=== PATIENT | female | born 1995 | race Caucasian/White ===

== ENCOUNTER → 2018-02-12 14:22 | Outpatient (CLI) | payer OTHER, MEDICAID, SELFPAY ==
[2018-02-12 15:04] LABS: Alanine Aminotransferase 29 IU/L (9-52); Albumin 4.6 g/dL (3.5-5.0); Albumin Globulin Ratio 1.6 (1.0-2.8); Alkaline Phosphatase 53 U/L (38-126); Aspartate Aminotransferase 19 IU/L (14-36); Bilirubin Total 0.6 mg/dL (0.2-1.3); Blood Urea Nitrogen 16 mg/dL (7-17); Calcium 9.4 mg/dL (8.4-10.2); Carbon Dioxide 29 mmol/L (22-32); Chloride 101 mmol/L (98-107); Estimated Glomerular Filt Rate > 60.0 mL/min (>60); Globulin 2.9 g/dL (1.7-4.1); Glucose 85 mg/dL (70-100); HEMOLYSIS < 15 (0-50); Sodium 141 mmol/L (137-145); Total Protein 7.5 g/dL (6.3-8.2)
[2018-02-12 15:09] LABS: Add Manual Diff / Slide Review NO; Basophils Percent Auto 0.4 % (0-2); Eosinophils Percent Auto 1.2 % (2-4); Hematocrit 38.6 % (36-46); Hemoglobin 12.5 g/dL (12.0-16.0); Lymphocytes Percent Auto 33.8 % (25-40); Mean Corpuscular HGB Conc 32.5 % (30-36); Mean Corpuscular Hemoglobin 27.6 PG (26-34); Monocytes Percent Auto 5.3 % (3-14); Neutrophils Absolute Auto 6100 /uL (3000-5900); Neutrophils Percent Auto 59.3 % (50-75); Platelet Count 299 X10^3/uL (150-400); Red Blood Cell Count 4.54 X10^6/uL (4.0-5.2); Red Cell Distribution Width 15.8 % (11.6-14.8); White Blood Cell Count 10.3 X10^3/uL (4.5-11.0)
[2018-02-12 15:18] LABS: Free T3, Triiodothyronine Free 2.03 pg/mL (2.77-5.27); Free T4, Direct Thyroxine 0.33 ng/dL (0.78-2.19)
== END ==
PROVIDERS: Family Provider Nurse Practitioner Family; PCP Family Medicine; Visit Provider Family Medicine
DX: E03.9 Hypothyroidism, unspecified (principal)
CPT/HCPCS: 36415; 80053; 84439; 84443; 84481; 85025

== ENCOUNTER → 2018-05-14 09:59 | Outpatient (CLI) | payer SELFPAY | PROVIDERS: PCP Family Medicine; Visit Provider Internal Medicine | DX: E03.9 Hypothyroidism, unspecified (principal) | CPT/HCPCS: 36415; 84443 ==

== ENCOUNTER → 2018-10-17 12:28 | Outpatient (CLI) | payer OTHER, MEDICAID, SELFPAY ==
--- NOTE | 2018-10-17 | DI.RAD.S_ITS ---
PROCEDURE: XR LUMBAR SPINE 2-3V INDICATIONS: LEFT LEG SCIATICA AND LOW BACK PAIN TECHNIQUE: 3 views of the lumbar spine were acquired. COMPARISON: None. FINDINGS: [facility], X-ray, Lumbar spine, 3 views, 10/20/2016 Bones: 5 [id number] vertebrae are present. There is normal bony alignment. No vertebral body compression fractures. No suspicious bony lesions. Soft tissues: Overlying bowel gas pattern is normal. No suspicious soft tissue calcifications. Moderate amount of stool in colon. IMPRESSION: Normal lumbar spine radiograph. Dictated by: Kylah Alfredo M.D. on 10/17/2018 at 16:57 Approved by: Kylah Alfredo M.D. on 10/17/2018 at 16:58
--- NOTE | 2018-10-17 | DI.RAD.S_ITS ---
PROCEDURE: XR PELVIS 1-2V INDICATIONS: LEFT LEG SCIATICA AND BACK PAIN TECHNIQUE: 1 view(s) of the pelvis acquired. COMPARISON: None. FINDINGS: Bones: No fractures or dislocations. No suspicious bony lesions. Soft tissues: Visualized bowel gas pattern is normal. No suspicious soft tissue calcifications. IMPRESSION: Normal exam. Dictated by: Kylah Alfredo M.D. on 10/17/2018 at 16:59 Approved by: Kylah Alfredo M.D. on 10/17/2018 at 17:00
== END ==
PROVIDERS: PCP Family Medicine; Visit Provider Chiropractor
DX: M54.42 Lumbago with sciatica, left side (principal)
CPT/HCPCS: 72100; 72170

== ENCOUNTER → 2019-01-09 10:13 | Outpatient (CLI) | payer OTHER, MEDICAID, SELFPAY ==
[2019-01-09 10:42] LABS: RBC Urine None Seen (0-5/HPF); WBC Urine None Seen (0-5/HPF)
[2019-01-09 10:57] LABS: Appearance Urine UA CLEAR; Bilirubin Urine UA NEGATIVE (NEGATIVE); Color Urine UA YELLOW; Glucose Urine UA NEGATIVE (Negative); Ketones Urine UA NEGATIVE (NEGATIVE); Leukocyte Esterase Urine UA NEGATIVE (NEGATIVE); Nitrite Urine UA NEGATIVE (Negative); Occult Blood Urine UA NEGATIVE (Negative); Protein Urine UA NEGATIVE (Negative); Specific Gravity Urine UA <=1.005 (1.000-1.035); Urobilinogen Urine UA 0.2 E.U./dL (0.2); pH Urine UA 6.5 (4.5-8.0)
[2019-01-09 11:09] LABS: Bacteria Urine Few (2-10); Culture Indicated Urine Cult Not Indicated; Squamous Epithelial Cell Urine 0-1 /HPF (0-5/HPF)
[2019-01-09 11:23] LABS: Add Manual Diff / Slide Review NO; Basophils Absolute Auto 0 /uL (0-100); Basophils Percent Auto 0.5 % (0-2); Eosinophils Absolute Auto 100 /uL (0-450); Eosinophils Percent Auto 1.2 % (2-4); Hematocrit 41.8 % (36-46); Hemoglobin 13.8 g/dL (12.0-16.0); Lymphocytes Absolute Auto 2100 /uL (1100-4500); Lymphocytes Percent Auto 26.1 % (25-40); Mean Corpuscular Hemoglobin 27.7 PG (26-34); Mean Corpuscular Volume 83.9 fL (80-100); Monocytes Absolute Auto 500 /uL (0-900); Monocytes Percent Auto 6.2 % (3-14); Neutrophils Absolute Auto 5200 /uL (1500-7000); Platelet Count 266 X10^3/uL (150-400); Red Blood Cell Count 4.99 X10^6/uL (4.0-5.2); Red Cell Distribution Width 17.9 % (11.6-14.8); White Blood Cell Count 7.9 X10^3/uL (4.5-11.0)
[2019-01-09 11:37] LABS: Alanine Aminotransferase 13 IU/L (9-52); Albumin 4.8 g/dL (3.5-5.0); Albumin Globulin Ratio 1.5 (1.0-2.8); Alkaline Phosphatase 66 U/L (38-126); Aspartate Aminotransferase 16 IU/L (14-36); BUN Creatinine Ratio 21.3 (6-22); Bilirubin Total 1.7 mg/dL (0.2-1.3); Blood Urea Nitrogen 17 mg/dL (7-17); Calcium 9.8 mg/dL (8.4-10.2); Carbon Dioxide 27 mmol/L (22-32); Chloride 100 mmol/L (98-107); Estimated Glomerular Filt Rate > 60.0 mL/min (>60); Globulin 3.2 g/dL (1.7-4.1); Glucose 89 mg/dL (70-100); HEMOLYSIS < 15 (0-50); Potassium 5.2 mmol/L (3.4-5.1); Sodium 140 mmol/L (137-145)
== END ==
PROVIDERS: PCP Nurse Practitioner Family; Visit Provider Nurse Practitioner Family
DX: E03.9 Hypothyroidism, unspecified (principal); R10.12 Left upper quadrant pain; R30.0 Dysuria
CPT/HCPCS: 36415; 80053; 81001; 84443; 85025

== ENCOUNTER 2019-01-21 10:31 | Observation (INO) | payer OTHER, MEDICAID, SELFPAY ==
[2019-01-21] VITALS (10 sets, daily range): BP systolic 88–138; BP diastolic 49–87; PULSE 63–88; RESP 9–18; TEMP 36.1–36.8; O2SAT 94–100; BMI 29.9
--- NOTE | 2019-01-21 11:49 | ED_ITS ---
HPI - Skin/Abscess/Foreign Bdy <Carmina Urias PA-C - Last Filed: 01/21/19 20:32> General Chief complaint: Skin/Abscess/Foreign Body Stated complaint: abcess on labia Time Seen by Provider: 01/21/19 11:25 Source: patient Mode of arrival: ambulatory Limitations: no limitations History of Present Illness HPI narrative: This 23-year-old female states that she phoned her PCP who sent her here due to labial lump, possible abscess. She states that she has had pain with wiping and swelling since Sunday, gradually worsening. She states she has had similar lesions in the past that come and go, so she tried hot compress and also tried to puncture with a needle herself but no drainage. She states this has continued to enlarge to the point that she can't sit or walk comfortably. She states she has not had no fever at home but has felt warm and was sweaty last night. Aside from pain and discomfort she states she is feeling fine without other new complaints Related Data Previous Rx's Medication Instructions Recorded levothyroxine 88 mcg tablet 88 mcg PO DAILY #60 tab 01/09/19 sertraline 50 mg tablet 50 mg PO DAILY #60 tab 01/09/19 oxycodone-acetaminophen [Percocet] 1 tab PO Q4-6H PRN #20 tab 01/21/19 sertraline 25 mg tablet 25 mg PO DAILY #60 tab 01/22/19 Allergies Allergy/AdvReac Type Severity Reaction Status Date / Time No Known Drug Allergies Allergy Verified 01/22/19 13:39 Review of Systems <Carmina Urias PA-C - Last Filed: 01/21/19 20:32> Review of Systems ROS Unobtainable: All systems reviewed & are unremarkable except as noted in HPI and below PFSH <Carmina Urias PA-C - Last Filed: 01/21/19 20:32> Medical History Panic attacks (Chronic) Nummular eczema (Chronic) Anxiety and depression (Chronic) Hypothyroidism (Chronic) Decreased hearing (Chronic) Social History Smoking Status: Former smoker Tobacco: How many years used: 10 second hand exposure: No alcohol intake: never substance use type: marijuana (edibles, smoke daily. ) Exam <Carmina Urias PA-C - Last Filed: 01/21/19 20:32> Narrative Exam Narrative: GENERAL APPEARANCE: Patient sitting comfortably, in no distress. LUNGS: Clear to auscultation bilaterally. HEART: Rate and rhythm regular without murmur, normal S1 and S2, no S3 or S4. EXTREMITIES: No edema : L. inferior labia edematous with large, indurated mass that appears in the midline, approximately 3+cm diameter, little overlying fluctuance, exquisitely tender. Little erythema. Otherwise normal external genitalia Initial Vital Signs Initial Vital Signs: Vital Signs Temperature 98.2 F 01/21/19 10:36 Pulse Rate 88 01/21/19 10:36 Respiratory Rate 18 01/21/19 10:36 Blood Pressure 138/80 01/21/19 10:36 Pulse Oximetry 98 01/21/19 10:36 <Marina Montes MD - Last Filed: 01/23/19 08:56> Initial Vital Signs Initial Vital Signs: Vital Signs Temperature 98.2 F 01/21/19 10:36 Pulse Rate 88 01/21/19 10:36 Respiratory Rate 18 01/21/19 10:36 Blood Pressure 138/80 01/21/19 10:36 Pulse Oximetry 98 01/21/19 10:36 Course <Carmina Urias PA-C - Last Filed: 01/21/19 20:32> Additional Information: I have spoken with Dr. Quiles human resource professional for [employer] re: my concern that this needs specialty care/I & D in [place]. She agrees. Patient has been NPO all day aside from a swallow of water with pain meds here and they will be able to take her to OR shortly Orders Ordered: Discontinued Medications Hydrocodone Bitart/Acetaminophen ([place] 5/325) 1 tab PO NOW ONE Stop: 01/21/19 11:57 Last Admin: 01/21/19 12:01 Dose: 1 tab Benzocaine (Cepacol Lozenge) 1 each PO PRN PRN PRN Reason: Sore Throat Bupivacaine HCl/Epinephrine Bitart (Sensorcaine 0.5% W/ Epi (Pf)) 30 ml INJ NOW ONE Stop: 01/21/19 14:06 Last Admin: 01/21/19 14:05 Dose: 30 ml Fentanyl (Sublimaze) 50 mcg IV Q5MIN PRN PRN Reason: Pain, Moderate (4-6) Hydromorphone HCl (Dilaudid) 0.5 mg IV Q5MIN PRN PRN Reason: Pain, Moderate (4-6) Hydroxyzine HCl (Vistaril) 25 mg IM NOW PRN PRN Reason: Pain, Mild (1-3) Lactated Ringer's (Lactated Ringers) 1,000 mls @ 42 mls/hr IV CONT KENYA Last Infusion: 01/21/19 14:50 Dose: 42 mls/hr Admin: 01/21/19 13:18 Dose: 42 mls/hr Cefazolin Sodium/Dextrose (Ancef) 2 gm in 100 mls @ 200 mls/hr IV NOW ONE Stop: 01/21/19 14:31 Last Infusion: 01/21/19 14:00 Dose: 0 mls/hr Admin: 01/21/19 13:52 Dose: 200 mls/hr Ibuprofen (Advil) 800 mg PO NOW ONE Stop: 01/21/19 11:57 Last Admin: 01/21/19 12:01 Dose: 800 mg Meperidine HCl (Demerol) 25 mg IV Q5MIN PRN PRN Reason: Pain or shivering Metoclopramide HCl (Reglan) 10 mg IV NOW PRN PRN Reason: Nausea And Vomiting Ondansetron HCl (Zofran) 4 mg IV NOW PRN PRN Reason: Nausea And Vomiting Oxycodone/Acetaminophen (Percocet 5/325) 1 tab PO Q4HR PRN PRN Reason: Pain, Moderate (4-6) Last Admin: 01/21/19 14:47 Dose: 1 tab Vital Signs - 8 hr 01/21/19 13:19 01/21/19 14:13 01/21/19 14:16 Temperature 98.3 F 97.2 F L Pulse Rate 82 68 64 Respiratory Rate 16 14 12 Blood Pressure 118/87 88/49 L 90/52 L Pulse Oximetry 100 95 94 01/21/19 14:18 01/21/19 14:23 01/21/19 14:32 Temperature Pulse Rate 64 63 73 Respiratory Rate 13 12 9 L Blood Pressure 90/59 L 91/56 L 104/65 Pulse Oximetry 94 100 98 01/21/19 14:48 01/21/19 15:04 Temperature 97.0 F L Pulse Rate 80 69 Respiratory Rate 11 L 16 Blood Pressure 116/78 109/85 Pulse Oximetry 99 99 <Marina Montes MD - Last Filed: 01/23/19 08:56> Orders Ordered: Discontinued Medications Hydrocodone Bitart/Acetaminophen ([place] 5/325) 1 tab PO NOW ONE Stop: 01/21/19 11:57 Last Admin: 01/21/19 12:01 Dose: 1 tab Benzocaine (Cepacol Lozenge) 1 each PO PRN PRN PRN Reason: Sore Throat Bupivacaine HCl/Epinephrine Bitart (Sensorcaine 0.5% W/ Epi (Pf)) 30 ml INJ NOW ONE Stop: 01/21/19 14:06 Last Admin: 01/21/19 14:05 Dose: 30 ml Fentanyl (Sublimaze) 50 mcg IV Q5MIN PRN PRN Reason: Pain, Moderate (4-6) Hydromorphone HCl (Dilaudid) 0.5 mg IV Q5MIN PRN PRN Reason: Pain, Moderate (4-6) Hydroxyzine HCl (Vistaril) 25 mg IM NOW PRN PRN Reason: Pain, Mild (1-3) Lactated Ringer's (Lactated Ringers) 1,000 mls @ 42 mls/hr IV CONT KENYA Last Infusion: 01/21/19 14:50 Dose: 42 mls/hr Admin: 01/21/19 13:18 Dose: 42 mls/hr Cefazolin Sodium/Dextrose (Ancef) 2 gm in 100 mls @ 200 mls/hr IV NOW ONE Stop: 01/21/19 14:31 Last Infusion: 01/21/19 14:00 Dose: 0 mls/hr Admin: 01/21/19 13:52 Dose: 200 mls/hr Ibuprofen (Advil) 800 mg PO NOW ONE Stop: 01/21/19 11:57 Last Admin: 01/21/19 12:01 Dose: 800 mg Meperidine HCl (Demerol) 25 mg IV Q5MIN PRN PRN Reason: Pain or shivering Metoclopramide HCl (Reglan) 10 mg IV NOW PRN PRN Reason: Nausea And Vomiting Ondansetron HCl (Zofran) 4 mg IV NOW PRN PRN Reason: Nausea And Vomiting Oxycodone/Acetaminophen (Percocet 5/325) 1 tab PO Q4HR PRN PRN Reason: Pain, Moderate (4-6) Last Admin: 01/21/19 14:47 Dose: 1 tab Vital Signs - 8 hr 01/21/19 13:19 01/21/19 14:13 01/21/19 14:16 Temperature 98.3 F 97.2 F L Pulse Rate 82 68 64 Respiratory Rate 16 14 12 Blood Pressure 118/87 88/49 L 90/52 L Pulse Oximetry 100 95 94 01/21/19 14:18 01/21/19 14:23 01/21/19 14:32 Temperature Pulse Rate 64 63 73 Respiratory Rate 13 12 9 L Blood Pressure 90/59 L 91/56 L 104/65 Pulse Oximetry 94 100 98 01/21/19 14:48 01/21/19 15:04 Temperature 97.0 F L Pulse Rate 80 69 Respiratory Rate 11 L 16 Blood Pressure 116/78 109/85 Pulse Oximetry 99 99 Discharge Plan Departure Patient Disposition: Admitted as Observation Clinical Impression: Labial abscess Discharge Date/Time: 01/21/19 12:39 Interventions: ED Discharge Assessment Last Done: 01/21/19 12:39 Instructions: DI for Incision and Drainage Referrals: Carine Quiles MD [Physician] - 01/23/19 Admit Date/Time: 01/21/19 12:32 Admit Provider: Carine Quiles
[2019-01-21] MEDS: HYDROCODONE/ACET 5/325 TABLET 1 TAB PO (12:01)
[2019-01-21] MEDS: IBUPROFEN 400 MG TABLET 800 MG PO (12:01)
[2019-01-21] MEDS: LACTATED RINGERS 1,000 ML 42 ML IV (13:18)
--- NOTE | 2019-01-21 13:28 | PM.HP.1 ---
History of Present Illness Date Patient Seen: 01/21/19 Time Patient Seen: 13:29 Chief complaint: abcess on labia Narrative: The patient is a 23-year-old 0 who presents with a left Bartholin's gland abscess from the emergency department She is here for an incision and drainage and possible packing of the Bartholin's gland abscess Patient History Medical History Panic attacks (Chronic) Nummular eczema (Chronic) Anxiety and depression (Chronic) Hypothyroidism (Chronic) Decreased hearing (Chronic) Family & Social History Social History: Prior Living Arrangements House Safety & Behavioral: Feels Safe in Current Yes Environment Been Physically Hurt or No Threatened By a Person Tobacco & Substance use: Smoking Status Former smoker alcohol intake never alcohol intake frequency 0-2 drinks per day Substance Use Type marijuana Meds Home Medications Medication Instructions Recorded Confirmed Type levothyroxine 88 mcg tablet 88 mcg PO DAILY #60 tab 01/09/19 01/21/19 Rx sertraline 50 mg tablet 50 mg PO DAILY #60 tab 01/09/19 01/21/19 Rx Allergies Allergy/AdvReac Type Severity Reaction Status Date / Time No Known Drug Allergies Allergy Verified 01/21/19 13:06 Exam Vital Signs (past 8 hours): - 01/21/19 10:36 01/21/19 12:31 01/21/19 13:19 Temperature 98.2 F 98.3 F Pulse Rate 88 77 82 Respiratory Rate 18 12 16 Blood Pressure 138/80 118/87 Blood Pressure [Right Arm] 130/83 Pulse Oximetry 98 100 100 Oxygen Delivery Method Room Air Narrative Exam Narrative: HEENT: No thyromegaly, no anterior cervical or supraclavicular lymphadenopathy. Lungs:Clear to auscultation bilaterally, no wheezes. Cardiovascular: Regular rate and rhythm, no murmurs, rubs, or gallops. Abdomen: No scars. No hepatosplenomegaly. No masses palpable. External genitalia: 4 cm left Bartholin's gland abscess Vagina: Normal Cervix: Normal Bimanual exam: [ Week size uterus. Mobile.] Rectal: No masses. Assessment & Plan Assessment & Plan narrative: Assessment: 23-year-old with a left Bartholin's gland abscess Plan: Incision and drainage and possible packing of left Bartholin's gland abscess The risks, benefits, and alternatives to the procedure were explained to the patient. The risks including bleeding and infection. She understands these risks and agrees to proceed. A full par Q was held and consent form was signed. Time Spent With Patient Time with patient: less than 15 minutes
[2019-01-21] MEDS: CEFAZOLIN 2 GM/100 ML FROZ.PIGGY IV (13:52)
--- NOTE | 2019-01-21 13:56 | SUR.OPER ---
Lithotomy on padded OR bed, head on pillow, arms secured on padded arm boards at <90 degrees abduction. Legs secured in padded yellow fins stirrups.
[2019-01-21] MEDS: BUPIVACAINE 0.5% W/ EPI (PF) VIAL 30 ML INJ (14:05)
[2019-01-21] MEDS: OXYCODONE/ACETAMINOPHEN 5/325 TABLET 1 TAB PO (14:47)
--- NOTE | 2019-01-21 14:53 | SUR.PHASEI ---
1413 late entry - to PACU w/oral airway. jaw thrust needed - resp even and regular w/support. Skin warm and dry. Dry naheed-pad. 1429 Arousing spontaneously, airway dc'd. HOB elevated, denies pain/nausea. Water given.
--- NOTE | 2019-01-21 14:57 | SUR.PHASEI ---
1447 PO rx given for pain 09/22. Tolerating PO well - fluids and applesauce.
--- NOTE | 2019-01-21 14:58 | SUR.PHASEI ---
1458 to OPD, patient awake, drowsy, talking, stable. Report given.
--- NOTE | 2019-01-22 00:30 | PM.GYNOP.1 ---
Operative Date/Time/Diagnoses Date of procedure: 01/21/19 Time of procedure: 14:15 Pre-op diagnosis: Left labial abscess Post-op diagnosis: same Procedure: Procedures Operation Date: 01/21/19 13:00 Actual Procedures Side Surgeon p I&D abscess of labia Carine Quiles MD Indications: Painful left labial abscess Surgeon: Carine Quiles Anesthesia Type: General (LMA) and Local Operative Notes Findings: 4 cm x 3 cm left labial abscess Closure Type: not applicable Specimen(s): other (Cultures) Estimated blood loss (mL): 5 Blood products transfused: none Procedure in detail: After informed consent was obtained, the patient was taken to the operating room where she was placed in the dorsal supine position. After adequate LMA general anesthesia was achieved, she was placed in the dorsal lithotomy position, and prepped and draped in the usual sterile fashion. 8 cc of 1% lidocaine with epinephrine were injected above the left labial mass. Using a # 10 Blade, a 1.5 cm incision was made over the fluctuant area. There was immediately approximately 10 cc of foul-smelling pus from the incision. The area was irrigated with 500 cc of sterile saline. The Bovie was used for hemostasis. The cavity was packed with approximately 10 cm of 1/2 inch iodoform gauze. Two sutures with 3 0 by a sin were loosely placed over the incision to hold the packing in place. Hemostasis was achieved. Sponge, lap, and instrument counts were correct x2. The patient tolerated the procedure well, and was taken to PACU in stable condition. Complications: none Post-operative Condition: stable Disposition: PACU Plan for aftercare: Home after recovery
== END 2019-01-21 15:28 | disposition home or self-care (01) ==
LOC: ED 12:23 → AC 12:34
PROVIDERS: Admitting Provider Obstetrics & Gynecology; Emergency Provider Internal Medicine; PCP Nurse Practitioner Family; Visit Provider Obstetrics & Gynecology
PROC: (CPT 56405; principal; 2019-01-21 13:00)
DX: N76.4 Abscess of vulva (principal); E03.9 Hypothyroidism, unspecified
CPT/HCPCS: 56405; 87070; 87075; 87077; 87147; 87205; 99282; 99283; G0378; J0690; J1100; J1885; J2250; J2405; J2704; J3010

== ENCOUNTER → 2019-02-11 08:23 | Outpatient (CLI) | payer OTHER, MEDICAID, SELFPAY ==
[2019-02-11 10:02] LABS: Glucose 94 mg/dL (70-100)
[2019-02-11 10:11] LABS: Free T4, Direct Thyroxine 1.43 ng/dL (0.78-2.19)
[2019-02-11 10:15] LABS: Follicle Stimulating Hormone 3.46 mIU/mL; Luteinizing Hormone 7.07 mIU/mL
[2019-02-14 15:14] LABS: Insulin Level Total 8.3 uIU/mL (2.0-19.6)
== END ==
PROVIDERS: Family Provider Nurse Practitioner Family; PCP Nurse Practitioner Family; Visit Provider Obstetrics & Gynecology
DX: N92.6 Irregular menstruation, unspecified (principal)
CPT/HCPCS: 36415; 82947; 83001; 83002; 83525; 84439

== ENCOUNTER → 2019-02-17 10:31 | Outpatient (CLI) | payer OTHER, MEDICAID, SELFPAY ==
[2019-02-17 11:20] LABS: Alanine Aminotransferase 18 IU/L (9-52); Albumin 4.6 g/dL (3.5-5.0); Albumin Globulin Ratio 1.4 (1.0-2.8); Alkaline Phosphatase 69 U/L (38-126); Aspartate Aminotransferase 15 IU/L (14-36); Bilirubin Unconjugated 0.7 mg/dL (0.0-1.1); Globulin 3.4 g/dL (1.7-4.1); HEMOLYSIS < 15 (0-50)
== END ==
PROVIDERS: Family Provider Nurse Practitioner Family; PCP Nurse Practitioner Family; Visit Provider Nurse Practitioner Family
DX: R17 Unspecified jaundice (principal); E03.9 Hypothyroidism, unspecified
CPT/HCPCS: 36415; 80076; 84443